=== PATIENT | male | born 1980 | race African-American/Black ===

== ENCOUNTER 2020-09-06 02:17 | Emergency (ER) | payer OTHER ==
[~2020-09-06] VITALS: Ht 177.8 cm; Wt 100.0 kg
[2020-09-06 05:29] VITALS: BP 115/76
== END 2020-09-06 05:38 | disposition home or self-care (01) ==
LOC: ER 02:17
DX: R20.0 Anesthesia of skin (principal); M79.662 Pain in left lower leg
CPT/HCPCS: 93971; 99284; Z7610